=== PATIENT | female | born 1975 ===

== ENCOUNTER 2024-04-24 07:45 | Inpatient (IN) | payer OTHER ==
[~2024-04-24] VITALS: Ht 160 cm; Wt 74.8 kg
[2024-04-25] MEDS ORDERED: MOUNJARO5 MG/0.5 M (10:51)
[2024-04-25] MEDS ORDERED: SYNJARDY 12.5-1 EACH PO (10:52)
[2024-04-25 10:56] VITALS: BP 118/78
[2024-05-01] MEDS ORDERED: CEFOXITIN SODIUM 2,000 MG VIAL IV ONE (07:07)
[2024-05-01] MEDS ORDERED: POVIDONE-IODINE 118 ML BOTT TOP ONE (07:07)
[2024-05-01] MEDS ORDERED: SUGAMMADEX SODIUM 200 MG/2 ML VIAL IV ONE (08:37)
[2024-05-01] MEDS ORDERED: RINGERS SOLUTION,LACTATED 1,000 ML IV SCH (09:30)
[2024-05-01] MEDS ORDERED: PROMETHAZINE HCL 25 MG/ML AMPUL IV SCH (09:31)
[2024-05-01] MEDS ORDERED: MEPERIDINE HCL 25 MG/ML AMPUL IV ONE (10:00)
[2024-05-01] MEDS ORDERED: MORPHINE SULFATE 4 MG/ML VIAL IV ONE ×2 (10:45→11:45)
[2024-05-01] MEDS ORDERED: MEPERIDINE HCL/PF 50 MG/ML VIAL IV SCH (12:00)
[2024-05-01 14:39] VITALS: BP 120/77
[2024-05-01 14:44] LABS: HEMATOCRIT 41.2 % (36.0-45.00); HEMOGLOBIN 13.3 g/dL (12.0-15.00); MEAN CELL VOLUME 91.6 fL (80.00-100.00); MEAN CORPUSCULAR HEMOGLOBIN 29.6 pg (27.00-32.0); MEAN CORPUSCULAR HGB CONC 32.3 g/dl (32.0-36.0); PLATELET COUNT 231 K/uL (150-450); RED CELL DISTRIBUTION WIDTH 13.5 % (11.5-14.5)
[2024-05-01 16:35] VITALS: BP 117/78
[2024-05-01] MEDS ORDERED: DEXTROSE 50 % IN WATER 0.5 G/ML DISP.SYRIN IV PRN (17:45)
[2024-05-01] MEDS ORDERED: INSULIN LISPRO 1,000 UNIT/10 ML UNITS SUBCUTANEO PRN (17:45)
[2024-05-02] VITALS: BP 129/77
[2024-05-02 04:00] VITALS: BP 129/80
[2024-05-02 08:00] VITALS: BP 117/81
[2024-05-02] MEDS ORDERED: Tylenol #3 PO (09:11)
[2024-05-02] MEDS ORDERED: NAPR500T14 PO (09:11)
== END 2024-05-02 11:42 | disposition home or self-care (01) | DRG 743 ==
LOC: OB/GYN 05-01 05:00 → O/R 05-01 05:00 → SURG 05-01 07:00 → OB/GYN 05-01 12:57
PROVIDERS: ADMIT Obstetrics & Gynecology; ATTEND Obstetrics & Gynecology
PROC: 0JQC0ZZ Repair Pelvic Region Subcutaneous Tissue and Fascia, Open Approach (ICD-10-PCS; 2024-05-01)
PROC: 0USG0ZZ Reposition Vagina, Open Approach (ICD-10-PCS; 2024-05-01)
PROC: 0TJB8ZZ Inspection of Bladder, Via Natural or Artificial Opening Endoscopic (ICD-10-PCS; 2024-05-01)
PROC: 0UT97ZZ Resection of Uterus, Via Natural or Artificial Opening (ICD-10-PCS; principal; 2024-05-01 07:00)
DX: D25.0 Submucous leiomyoma of uterus (principal); N81.11 Cystocele, midline; D50.0 Iron deficiency anemia secondary to blood loss (chronic); N92.0 Excessive and frequent menstruation with regular cycle